=== PATIENT | male | born 1990 | race African-American/Black ===

== ENCOUNTER 2018-06-17 20:16 | Emergency (ER) | payer MEDICAID ==
[~2018-06-17] VITALS: Ht 177.8 cm; Wt 63.9 kg
[2018-06-17] MEDS ORDERED: HYDROcodone/acetaminophen 10/325mg tab PO ONE (20:40)
[2018-06-17] MEDS ORDERED: IBUP-1984 PO (20:52)
[2018-06-17] MEDS ORDERED: HYDR-4353 PO (21:37)
[2018-06-17 21:47] VITALS: BP 135/76
== END 2018-06-17 21:49 | disposition home or self-care (01) ==
LOC: ER 20:17
DX: S62.307A Unspecified fracture of fifth metacarpal bone, left hand, initial encounter for closed fracture (principal); W22.8XXA Striking against or struck by other objects, initial encounter; Y93.89 Activity, other specified; Y92.89 Other specified places as the place of occurrence of the external cause; Y99.8 Other external cause status
CPT/HCPCS: 29125; 73130; 99284

== ENCOUNTER 2019-11-28 12:40 | Emergency (ER) | payer MEDICAID ==
[~2019-11-28] VITALS: Ht 177.8 cm; Wt 54.9 kg
[~2019-11-28 12:40] MED LIST: IBUP-1984 PO; PROC-8 PO
[2019-11-28 13:21] LABS: CLARITY,URINE CLEAR (Clear); COLOR,URINE YELLOW (Yellow); GLUCOSE, URINE NEGATIVE (Neg); KETONES,URINE NEGATIVE (Neg); LEUKOCYTE ESTERASE ,URINE NEGATIVE (Neg); NITRITES, URINE NEGATIVE (Neg); OCCULT BLOOD,URINE NEGATIVE (Neg); PROTEIN,URINE NEGATIVE (Neg)
[2019-11-28 13:27] LABS: UA COLLECTION TYPE VOIDED
[2019-11-28 13:52] LABS: BASOPHILS % (AUTO) 0.4 % (0-1); EOSINOPHILS % (AUTO) 0.9 % (0-6); HEMATOCRIT 43.3 % (42.0-52.0); HEMOGLOBIN 14.5 g/dl (14.0-17.9); LYMPHOCYTES # (AUTO) 2.5 X10'3 (1.1-4.8); LYMPHOCYTES % (AUTO) 44.9 % (21-51); MEAN CORPUSCULAR HEMOGLOBIN 29.6 PG (27.0-31.0); MEAN CORPUSCULAR HGB CONC 33.5 g/dL (33.0-36.5); MEAN CORPUSCULAR VOLUME 88.5 FL (78-98); MEAN PLATELET VOLUME 8.5 FL (7.4-10.4); MONOCYTES # (AUTO) 0.3 X10'3 (0-0.9); MONOCYTES % (AUTO) 5.3 % (2-12); NEUTROPHILS # (AUTO) 2.7 X10'3 (1.8-7.7); NEUTROPHILS % (AUTO) 48.5 % (42-75); PLATELET COUNT 220 X10'3 (140-440); RED BLOOD COUNT 4.89 X10'6 (4.70-6.10); RED CELL DISTRIBUTION WIDTH 13.5 % (11.5-14.5); WHITE BLOOD COUNT 5.5 X10'3 (4.5-11.0)
[2019-11-28 14:03] LABS: ALANINE AMINOTRANSFERASE 72 U/L (12-78); ALBUMIN 4.3 G/DL (3.4-5.0); ALBUMIN/GLOBULIN RATIO 1.2 (1.1-1.5); ALKALINE PHOSPHATASE 64 IU/L (46-116); ANION GAP 8 (8-16); ASPARTATE AMINO TRANSFERASE 38 U/L (10-37); BILIRUBIN,TOTAL 0.5 MG/DL (0.1-1.0); BLOOD UREA NITROGEN 11 MG/DL (7-18); CALCIUM 9.3 MG/DL (8.5-10.1); CHLORIDE 104 MMOL/L (99-107); CREATININE 1.22 MG/DL (0.60-1.10); GLUCOSE 116 MG/DL (70-104); LIPASE 77 U/L (73-393); POTASSIUM 3.7 MMOL/L (3.5-5.1); SODIUM 140 MMOL/L (135-145); TOTAL CARBON DIOXIDE 27.7 MMOL/L (24-32); TOTAL PROTEIN 7.9 G/DL (6.4-8.2); eGFR 87 ML/MIN
[2019-11-28] MEDS ORDERED: ketorolac trometh. 30mg/ml inj. IV ONE (14:05)
[2019-11-28] MEDS ORDERED: normal saline 1000ml 1,000 ML IV ONE (14:35)
[2019-11-28] MEDS ORDERED: ONDA4TAB6 PO (15:22)
[2019-11-28] MEDS ORDERED: HYDR-4383 PO (15:22)
[2019-11-28 15:39] VITALS: BP 137/71
== END 2019-11-28 15:41 | disposition home or self-care (01) ==
LOC: ER 12:40
DX: N20.9 Urinary calculus, unspecified (principal); R11.10 Vomiting, unspecified; Z79.899 Other long term (current) drug therapy
CPT/HCPCS: 36415; 74176; 80053; 81003; 83690; 85025; 96361; 96374; 99284; J1885; J7030